=== PATIENT | male | born 1950 | race Caucasian/White ===

== ENCOUNTER 2017-04-13 05:51 | Inpatient (IN) | payer OTHER ==
[~2017-04-13] VITALS: Ht 172.7 cm; Wt 94.8 kg
[2017-04-13 06:07] VITALS: BP 176/88
[2017-04-13 06:39] VITALS: BP 176/88
[2017-04-13 15:52] LABS: MAGNESIUM 1.7 mg/dL (1.8-2.4); PHOSPHOROUS 2.1 mg/dL (2.5-4.9)
[2017-04-13 15:53] LABS: CHOLESTEROL/HDL RATIO 3.4
[2017-04-13 15:56] VITALS: BP 154/77
[2017-04-13 16:01] LABS: FREE T4 1.49 ng/dL (0.76-1.46); FREE THYROXINE INDEX 4.5 ug/dL (1.4-4.5); T3 TOTAL 1.23 ng/mL; T4(THYROXINE) 11.2 ug/dL (4.7-13.3)
[2017-04-13 17:20] VITALS: BP 150/75
[2017-04-13] MEDS ORDERED: PANTOPRAZOLE SO40 M1 PO (17:24)
[2017-04-13] MEDS ORDERED: TAMSULOSIN HYD0.4 M1 PO (17:24)
[2017-04-13] MEDS ORDERED: ATORVASTATIN CA40 M1 PO (17:24)
[2017-04-13] MEDS ORDERED: METFORMIN HCL1000 MG PO (17:24)
[2017-04-13] MEDS ORDERED: MONTELUKAST SOD10 M1 PO (17:25)
[2017-04-13] MEDS ORDERED: BENAZEPRIL HYDR10 M1 PO (17:25)
[2017-04-13] MEDS ORDERED: AMLODIPINE BESYL5 M2 PO (17:26)
[2017-04-13] MEDS ORDERED: METOPROLOL SUC200 M2 PO (17:26)
[2017-04-13 18:37] LABS: ALBUMIN 3.5 g/dL (3.4-5.0); BILIRUBIN TOTAL 0.6 mg/dL (0.20-1.00); CALCIUM 7.3 mg/dL (8.5-10.1); CARBON DIOXIDE 23.5 mmol/L (21-32); CREATININE SERUM 1.4 mg/dL (0.7-1.3); POTASSIUM SERUM 4.7 mmol/L (3.5-5.1); TOTAL PROTEIN, SERUM 7.1 g/dL (6.4-8.2)
[2017-04-13 21:53] VITALS: BP 156/77
[2017-04-14 06:30] VITALS: BP 139/68
[2017-04-14 06:54] LABS: BASOPHIL % 0.1 % (0-2); PLATELET COUNT 205 x10^3mcL (130-400); RED CELL DISTRIBUTION WIDTH 13.2 % (11.5-14.5)
[2017-04-14 06:56] LABS: CALCIUM 7.6 mg/dL (8.5-10.1); CHLORIDE SERUM 103 mmol/L (98-107); CREATININE SERUM 1.2 mg/dL (0.7-1.3); GFR1 > 60 mL/min; GLUCOSE SERUM 211 mg/dL (74-106); MAGNESIUM 2.1 mg/dL (1.8-2.4); PHOSPHOROUS 2.4 mg/dL (2.5-4.9); POTASSIUM SERUM 3.9 mmol/L (3.5-5.1); SODIUM SERUM 137 mmol/L (136-145)
[2017-04-14 14:12] LABS: BASOPHIL % 0.2 % (0-2); PLATELET COUNT 212 x10^3mcL (130-400); RED CELL DISTRIBUTION WIDTH 12.9 % (11.5-14.5)
[2017-04-14 14:46] LABS: microscopic required? YES; urine erythrocyte 2+ (NEGATIVE)
[2017-04-14 15:14] VITALS: BP 141/64
[2017-04-14 18:22] VITALS: BP 140/58
[2017-04-14 21:51] VITALS: BP 160/72
[2017-04-15 06:32] VITALS: BP 171/77
[2017-04-15 07:11] LABS: BASOPHIL % 0.2 % (0-2); PLATELET COUNT 206 x10^3mcL (130-400); RED CELL DISTRIBUTION WIDTH 13.2 % (11.5-14.5)
[2017-04-15 07:29] LABS: CALCIUM 7.7 mg/dL (8.5-10.1); CARBON DIOXIDE 23.7 mmol/L (21-32); CHLORIDE SERUM 102 mmol/L (98-107); CREATININE SERUM 1.1 mg/dL (0.7-1.3); GFR1 > 60 mL/min; GLUCOSE SERUM 201 mg/dL (74-106); PHOSPHOROUS 1.9 mg/dL (2.5-4.9); POTASSIUM SERUM 3.7 mmol/L (3.5-5.1); SODIUM SERUM 136 mmol/L (136-145)
[2017-04-15 08:40] VITALS: BP 178/77
[2017-04-15 13:27] VITALS: BP 139/67
[2017-04-15] MEDS ORDERED: LOT20 PO (16:02)
[2017-04-15] MEDS ORDERED: DILAUDID2 MG PO (16:23)
[2017-04-15] MEDS ORDERED: COLACE100 MG PO (16:23)
[2017-04-15 16:38] VITALS: BP 139/67
[2017-04-15] MEDS ORDERED: NPHOS PO ×2 (17:48→17:50)
== END 2017-04-15 17:50 | disposition home health service, planned readmission (86) | DRG 469 ==
LOC: DU 05:51
PROVIDERS: Family Medicine; Neuromusculoskeletal Medicine, Sports Medicine
PROC: 0SRC069 Replacement of Right Knee Joint with Oxidized Zirconium on Polyethylene Synthetic Substitute, Cemented, Open Approach (ICD-10-PCS; principal; 2017-04-13 07:30)
DX: M17.11 Unilateral primary osteoarthritis, right knee (principal); N17.0 Acute kidney failure with tubular necrosis; E11.65 Type 2 diabetes mellitus with hyperglycemia; I16.0 Hypertensive urgency; R31.9 Hematuria, unspecified; E83.42 Hypomagnesemia; E83.39 Other disorders of phosphorus metabolism; E83.51 Hypocalcemia; I10 Essential (primary) hypertension; N40.0 Benign prostatic hyperplasia without lower urinary tract symptoms; Z68.31 Body mass index [BMI] 31.0-31.9, adult; Z79.84 Long term (current) use of oral hypoglycemic drugs
CPT/HCPCS: 82962; 83880; 84439; 94150; 97110-GP; 97116-GP; 97139; 97530-GP; C1713; C1776; J0690; J1644; J1650; J1815; J1885; J2250; J2270; J2405; J2704; J2765; J3010; J3475; J3490; J7030; J7620; Q0092

== ENCOUNTER 2018-05-31 16:06 | Emergency (ER) | payer OTHER ==
[~2018-05-31] VITALS: Ht 172.7 cm; Wt 99.8 kg
[~2018-05-31 16:06] MED LIST: AMLODIPINE BESYL5 M2 PO; ATORVASTATIN CA40 M1 PO; BENAZEPRIL HYDR10 M1 PO; COLACE100 MG PO; DILAUDID2 MG PO; LOT20 PO; METFORMIN HCL1000 MG PO; METOPROLOL SUC200 M2 PO; MONTELUKAST SOD10 M1 PO; NPHOS PO; PANTOPRAZOLE SO40 M1 PO; TAMSULOSIN HYD0.4 M1 PO
[2018-05-31 16:11] VITALS: Ht 172.7 cm; Wt 99.8 kg
[2018-05-31 17:22] VITALS: BP 152/89
== END 2018-05-31 17:22 | disposition home or self-care (01) ==
LOC: ED 16:06
DX: S39.012A Strain of muscle, fascia and tendon of lower back, initial encounter (principal); K21.9 Gastro-esophageal reflux disease without esophagitis; E78.00 Pure hypercholesterolemia, unspecified; I10 Essential (primary) hypertension; E11.9 Type 2 diabetes mellitus without complications; Z88.0 Allergy status to penicillin; Z88.5 Allergy status to narcotic agent; Z88.6 Allergy status to analgesic agent; V49.88XA Car occupant (driver) (passenger) injured in other specified transport accidents, initial encounter; Y93.I9 Activity, other involving external motion; Y92.413 State road as the place of occurrence of the external cause
CPT/HCPCS: 72072; Q0162